=== PATIENT | male | born 1945 | race Caucasian/White ===

== ENCOUNTER → 2018-05-31 | Day surgery (SDC) | payer OTHER ==
[~2018-05-31] MED LIST: ALPHAGAN P5 M2 OP; BETIMOL5 M1 OP; CLONAZEPAM1 MG PO; DILTIAZEM 24HR120 MG PO; GEMFIBROZIL600 MG PO; GLIMEPIRIDE1 MG PO; LATANOPROST2.5 ML OP; LEVO-T25 MCG PO; LISINOPRIL10 MG PO; TOBREX5 ML OP; [UNRECOGNIZED DRUG - OTHER] PO
== END | disposition home or self-care (01) ==
LOC: ADM 05-25 07:30 → CIR.AMB 05:40
DX: H72.01 Central perforation of tympanic membrane, right ear (principal); H74.11 Adhesive right middle ear disease